=== PATIENT | female | born 1975 | race Caucasian/White ===

== ENCOUNTER 2018-07-30 05:17 | Day surgery (SDC) | payer BC ==
[2018-07-25 10:04] VITALS: BMI 25.0
--- NOTE | 2018-07-30 09:21 | HP ---
Past Medical History - Primary Care Physician PCP:: Linwood Bacon - Admission Chief Complaint: 43yo P1 admitted for laparoscopic BTL and D&C. History of Present Illness: Menorrhagia and sterilization. Failed Mirena IUD insertion. 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: Alzheimer's, CVA, Dementia, Migraine, Multiple Sclerosis, Peripheral Neuropathy, Parkinson's, Seizure, Syncope, TIA, Vertigo, Other Cardiovascular: No: AFIB, Aneurysm, Aortic Insufficiency, Aortic Stenosis, CAD, CHF, Deep Vein Thrombosis, HTN, Hyperlipdemia, [place], Mitral Insufficiency, Mitral Stenosis, Murmur, Pulmonary Hypertension, Other Pulmonary: Yes: Asthma Gastrointestinal: No: Ascites, Cancer, Constipation, Crohn's Disease, Diverticulitis, Diverticulosis, Esophageal Varices, Gastritis, GERD, GI Bleed, Hemorrhoids, Hiatal Hernia, Inflamatory Bowel Disease, Irritable Bowel Disease, Pancreatitis, Peptic Ulcer Disease, Ulcerative Colitis, Other Hepatobiliary: No: Cirrhosis, Cholelithiasis, Cholecystitis, Choledocholithiasis , Hepatitis A, Hepatitis B, Hepatitis C, Other Renal/: No: Renal Failure, Renal Inusuff, BPH, Cancer, Hematuria, Hemodialysis , Neurogenic Bladder, Renal Calculi, UTI, Other Reproductive: No: Ectopic , Endometriosis, Fibroids, PID, Polycystic Ovary Syndrome, Postmenopausal, Other ...Para: 2 (C/S x 2) Heme/Onc: Yes: Anemia Infectious Disease: No: AIDS, C-Diff, Herpes Zoster, HIV, MRSA, STD's, Tuberculosis, VREF, Other Psych: No: Addictions, Anxiety, Bipolar, Depression, Panic, Psychosis, Schizophrenia, Other Musculoskeletal: No: Bursitis, Chronic low back pain, Hemiparesis, Hemiplegia, Osteoarthritis, Paraplegia, Other Rheumatology: No: Fibromyalgia, Gout, Lupus, Rheumatoid Arthritis, Sarcoidosis, Vasculitis, Other Endocrine: No: Nowata's Disease, Baldev's Disease, Diabetes Insipidus, Diabetes Mellitus, Hyperparathyroidism, Hyperthyroidism, Hypothyroidism, Osteopenia, SIADH, Other Dermatology: No: Basal Cell, Cellulitis, Eczema, Melanoma, Psoriasis, Squamous Cell, Other - Past Surgical History Past Surgical History: Yes: Bariatric Surgery (Gastric sleeve), Hx Myomectomy: No Hx Transabdominal Cerclage: No - Smoking History Smoking history: Former smoker Have you smoked in the past 12 months: No - Alcohol/Substance Use Hx Alcohol Use: Yes (social) History of Substance Use: reports: None - Social History Usual Living Arrangement: Yes: With Spouse, With Child ADL: Independent History of Recent Travel: No Home Medications - Allergies Allergies/Adverse Reactions: Allergies Allergy/AdvReac Type Severity Reaction Status Date / Time No Known Allergies Allergy Verified 07/30/18 08:08 - Home Medications Home Medications: Ambulatory Orders Biotin 10,000 mcg PO DAILY 07/25/18 Cholecalciferol (Vitamin D3) [Vitamin D3 -] 400 unit PO DAILY 07/25/18 Docusate Sodium [Colace] 100 mg PO DAILY 07/25/18 Iron,Carb/Vit C/Vit B12/Folic [Iron 100 Plus Tablet] 1 each PO DAILY 07/25/18 Vitamin A 8,000 unit PO DAILY 07/25/18 Family Disease History - Family Disease History Family Disease History: Diabetes: Grandparent (lung ca), CA: Grandparent, Other : Mother (HTN) Review of Systems - Review of Systems Constitutional: reports: No Symptoms Eyes: reports: No Symptoms HENT: reports: No Symptoms Neck: reports: No Symptoms Cardiovascular: reports: No Symptoms Respiratory: reports: No Symptoms Gastrointestinal: reports: No Symptoms Genitourinary: reports: No Symptoms Breasts: reports: No Symptoms Reported Musculoskeletal: reports: No Symptoms Integumentary: reports: No Symptoms Neurological: reports: No Symptoms Endocrine: reports: No Symptoms Hematology/Lymphatic: reports: No Symptoms Psychiatric: reports: No Symptoms Pain Intensity: 0 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 Vital Signs: Vital Signs Temperature 98.7 F 07/30/18 08:17 Pulse Rate 72 07/30/18 08:17 Respiratory Rate 16 07/30/18 08:17 Blood Pressure 117/73 07/30/18 08:17 O2 Sat by Pulse Oximetry (%) 100 07/30/18 08:17 Constitutional: Yes: Well Nourished, No Distress, Calm Eyes: Yes: WNL, Conjunctiva Clear HENT: Yes: WNL, Atraumatic, Normocephalic Neck: Yes: WNL, Supple, Trachea Midline Cardiovascular: Yes: WNL, Regular Rate and Rhythm Respiratory: Yes: WNL, Regular, CTA Bilaterally Gastrointestinal: Yes: WNL, Normal Bowel Sounds, Soft ...Rectal Exam: Yes: Deferred Renal/: Yes: WNL Pelvis: Yes: WNL External Genitalia: Yes: Normal Vaginal Exam: Yes: Normal Cervix: Yes: Normal Uterus: Yes: Normal Adnexa: Normal: Left, Right ....Post : Yes: Uterus firm, Uterus non-tender Musculoskeletal: Yes: WNL Extremities: Yes: WNL Edema: No Integumentary: Yes: WNL Neurological: Yes: WNL, Alert, Oriented ...Motor Strength: WNL Psychiatric: Yes: WNL, Alert, Oriented Assessment/Plan 43yo P2 admitted for surgical sterilization with laparoscopic BTL and D&C. We had discussed the risks, benefits, alternatives of surgery at length including but not limited to infection, bleeding, scarring, perforation, amenorrhea, infertility, hysterectomy, injury to surrounding/underlying organs or structure , need for additional surgery to repair/treat any complications, etc. The patient verbalized understanding and requested to proceed with surgery. I emphasized that all surgeries have risks and no guarantees can be provided.
[2018-07-30] MEDS ORDERED: PROMETHAZINE HCL 25 MG/1 ML VIAL IVPUSH PRN (09:22)
[2018-07-30] MEDS ORDERED: ONDANSETRON 4 MG/2 ML VIAL IVPUSH PRN (09:22)
[2018-07-30] MEDS ORDERED: oxyCODONE HCL 5 MG TABLET PO PRN (09:22)
[2018-07-30] MEDS ORDERED: LACTATED RINGERS SOLUTION 1,000 ML IV SCH (09:30)
[2018-07-30] MEDS ORDERED: MIDAZOLAM HCL 2 MG/2 ML SINGLE DOSE VIAL ONE ×2 (09:50)
[2018-07-30] MEDS ORDERED: PROPOFOL 20 ML ONE (09:54)
[2018-07-30] MEDS ORDERED: ROCURONIUM BROMIDE 50 MG/5 ML VIAL ONE (09:54)
[2018-07-30] MEDS ORDERED: BUPIVACAINE HCL/PF 0.5% (5MG/ML) 10 ML VIAL ONE (09:55)
[2018-07-30] MEDS ORDERED: BUPIVACAINE HCL/PF 0.5% (5MG/ML) 10 ML VIAL IJ ONE (10:44)
[2018-07-30] MEDS ORDERED: NEOSTIGMINE METHYLSULFATE 0.5 MG/ML - 10 ML MDV ONE (10:45)
[2018-07-30 12:11] VITALS: TEMP 98
[2018-07-30 15:08] VITALS: BP 125/67; PULSE 69
--- NOTE | 2018-07-30 18:23 | DS ---
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 Vital Signs: Vital Signs Temperature 98.0 F 07/30/18 12:00 Pulse Rate 69 07/30/18 15:08 Respiratory Rate 20 07/30/18 15:08 Blood Pressure 125/67 07/30/18 15:08 O2 Sat by Pulse Oximetry (%) 99 07/30/18 15:00 Constitutional: Yes: Well Nourished, No Distress, Calm Eyes: Yes: WNL, Conjunctiva Clear HENT: Yes: WNL, Atraumatic, Normocephalic Neck: Yes: WNL, Supple, Trachea Midline Cardiovascular: Yes: WNL, Regular Rate and Rhythm Respiratory: Yes: WNL, Regular, CTA Bilaterally Gastrointestinal: Yes: WNL, Normal Bowel Sounds, Soft ...Rectal Exam: Yes: Deferred Renal/: Yes: WNL Musculoskeletal: Yes: WNL Extremities: Yes: WNL Edema: No Integumentary: Yes: WNL Wound/Incision: Yes: Clean/Dry, Well Approximated Neurological: Yes: WNL, Alert, Oriented ...Motor Strength: WNL Psychiatric: Yes: WNL, Alert, Oriented Discharge Summary Reason For Visit: STERILIZATION - Instructions Referrals: Linwood Bacon MD [Staff Physician] - Disposition: HOME - Home Medications Comprehensive Discharge Medication List: Ambulatory Orders Biotin 10,000 mcg PO DAILY 07/25/18 Cholecalciferol (Vitamin D3) [Vitamin D3 -] 400 unit PO DAILY 07/25/18 Docusate Sodium [Colace] 100 mg PO DAILY 07/25/18 Iron,Carb/Vit C/Vit B12/Folic [Iron 100 Plus Tablet] 1 each PO DAILY 07/25/18 Vitamin A 8,000 unit PO DAILY 07/25/18 Oxycodone HCl/Acetaminophen [Percocet 5-325 mg Tablet -] 1 - 2 tab PO Q6H PRN # 20 tab MDD 6 07/30/18 metroNIDAZOLE [Flagyl -] 500 mg PO BID #14 tablet 07/30/18
--- NOTE | 2018-07-30 18:39 | OP ---
Operative Note - Note: Operative Date: 07/30/18 Pre-Operative Diagnosis: menorrhagia, sterilization Operation: Laparoscopic BTL, D&C Findings: Mildly enlarged retroverted uterus. Normal Fallopian tubes and ovaries b/l, adhesions of omentum to anterior abdominal wall. Post-Operative Diagnosis: Same as Pre-op Surgeon: Linwood Bacon Plunger Shovel Operator: Remigio Berry Anesthesiologist/GLOBAL CLIMATE CHANGE RESEARCHER: La Baxter MD Anesthesia: General Specimens Removed: Endometrial curettings Estimated Blood Loss (mls): 5 Drains & Tubes with Location: Perez cath Drains, Volume Out (mls): 30 Blood Volume Replaced (mls): 0 Fluid Volume Replaced (mls): 1,000 Operative Report Dictated: Yes
--- NOTE | 2018-07-31 08:53 | OP ---
ADDENDUM DATE OF OPERATION: 07/30/2018 JUSTIFICATION OF STRATIGRAPHER: A surgical garment assembly supervisor was necessary due to patient's comorbidities such as obesity as well as multiple previous abdominal surgeries including 2 previous sections and a gastric sleeve. Possible complications were anticipated due to adhesive disease and a surgical garment assembly supervisor was required to assure a safe and expeditious surgery. The surgical garment assembly supervisor was critical in providing adequate visualization, retraction, hemostasis, dissection and allowing for the surgery to be completed in a safe and expeditious manner. The surgical garment assembly supervisor was involved in all parts of the operation. Ari [id number]
--- NOTE | 2018-07-31 09:55 | OP ---
DATE OF OPERATION: 07/30/2018 PREOPERATIVE DIAGNOSIS: Menorrhagia and surgical sterilization. POSTOPERATIVE DIAGNOSIS: Menorrhagia and surgical sterilization. PROCEDURE: Laparoscopic bilateral tubal ligation via fulguration, dilatation and curettage. SURGEON: Linwood Bacon MD CYLINDER MACHINE OPERATOR PULP DRIER: Remigio Berry MD ANESTHESIOLOGIST: La Baxter MD ANESTHESIA: General. COMPLICATIONS: None. ESTIMATED BLOOD LOSS: 5 mL. INTRAVENOUS FLUIDS: 1000 mL. URINE OUTPUT: Clear urine, 30 mL, at the end of the procedure. PATHOLOGY: Endometrial curettings. FINDINGS: Examination under anesthesia revealed a mildly enlarged retroverted uterus with no pelvic or adnexal masses. Laparoscopy revealed a retroverted uterus with normal fallopian tubes and ovaries. There were adhesions of the omentum to the anterior abdominal wall. The visualized segments of bowel and liver were within normal limits. DESCRIPTION OF PROCEDURE: The patient was met preoperatively. Risks, benefits, and alternatives of surgery were discussed in details. All questions were answered. The patient was brought to the OR with IV running. She was placed on the surgical table in the supine position. The general endotracheal anesthesia was achieved without difficulty. The patient was then placed in a dorsal lithotomy position using adjustable Ar stirrups. She was examined under anesthesia with the findings as described above. The patient was prepped and draped in the usual sterile fashion. A Perez catheter was inserted into bladder and left to drain to gravity. Cervix was dilated to accommodate a size 23 Melchor dilator. A sharp curettage was performed and tissue was sent to Pathology for evaluation. Following the D and C, a uterine manipulator was inserted inside the uterus. The surgeons then regloved and proceeded with the laparoscopy. A 5-mm infraumbilical incision was made with the knife. A Veress needle was inserted through the umbilical incision into the peritoneal cavity. Intraperitoneal placement was confirmed by drop in saline meniscus. Pneumoperitoneum was then induced without complications with the intraabdominal pressure limited to 15 mmHg. The Veress needle was then removed. An Optiview trocar was used to gain entry through the umbilical incision and into the peritoneal cavity under direct visualization. Atraumatic placement was confirmed. Survey of the abdomen and pelvis revealed the findings as described above. A second incision was made approximately 3 cm above the pubic symphysis in the midline. A second 5-mm trocar was inserted through the incision under direct visualization. A bipolar Kleppinger device was then used to grasp the right fallopian tube. The fallopian tube was followed to the fimbriated end. The mid-portion of the right fallopian tube was then cauterized using bipolar Kleppinger cautery device for the length of approximately 3 cm. Good cauterization was achieved. The left fallopian tube was then grasped and followed to the fimbriated end. The mid-portion of the left fallopian tube was also cauterized using the bipolar Kleppinger cautery device for the length of about 3 cm. Good cauterization results were achieved. Once this was completed, all of the instruments were removed from the patient. The pneumoperitoneum was reduced. Sponge, lap, and needle counts were correct. The abdominal incisions were closed with 3-0 Vicryl suture for the skin. A uterine manipulator was removed from the patient. A Perez catheter was also removed from the patient. The patient was returned to supine position. She was then transferred to recovery room awake and in stable condition. Ari [id number]
--- NOTE | 2018-07-31 17:11 | PATH ---
Surgical Pathology Report Patient Name: AMIRA PEREZ [facility]. Rec. #: [id number] /Age/Gender: 1975 (Age: 43) / F Account: [id number] Location: [facility] Taken: 07/30/2018 Received: 07/30/2018 Reported: 07/31/2018 Physicians: Linwood Bacon M.D. Specimen(s) Received ENDOMETRIAL CURETTINGS Clinical History Voluntary sterilization Final Diagnosis ENDOMETRIAL CURETTINGS: FRAGMENTS OF ENDOMETRIAL POLYP. SEPARATE FRAGMENTS OF PROLIFERATIVE ENDOMETRIUM. SEPARATE ENDOCERVICAL TISSUE WITH SQUAMOUS METAPLASIA. Electronically Signed Marcellus Manriquez M.D. Gross Description Received in formalin labeled "endometrial curetting," is a 3.7 x 2.4 x 0.3 cm aggregate of rangel-red soft tissue fragments. The formalin is filtered and the specimen is entirely submitted in 2 cassettes. DL/07/30/2018 saudi07/30/2018
== END 2018-07-30 15:10 | disposition home or self-care (01) ==
LOC: JASU-SURG 05:17
PROVIDERS: ATTEND Obstetrics & Gynecology
PROC: 0UB74ZZ Excision of Bilateral Fallopian Tubes, Percutaneous Endoscopic Approach (ICD-10-PCS; principal; 2018-07-30 09:00)
PROC: 0UDB7ZX Extraction of Endometrium, Via Natural or Artificial Opening, Diagnostic (ICD-10-PCS; 2018-07-30 09:00)
DX: Z30.2 Encounter for sterilization (principal); N92.0 Excessive and frequent menstruation with regular cycle; K66.0 Peritoneal adhesions (postprocedural) (postinfection)
CPT/HCPCS: 84703; 88305-TC; 94760

== ENCOUNTER 2019-01-07 08:36 | Day surgery (SDC) | payer BC ==
[2019-01-04 09:19] VITALS: BMI 25.7
[2019-01-07] MEDS ORDERED: MIDAZOLAM HCL 2 MG/2 ML SINGLE DOSE VIAL ONE ×2 (10:22→10:32)
[2019-01-07] MEDS ORDERED: PROPOFOL 20 ML ONE (10:22)
--- NOTE | 2019-01-07 10:34 | HP ---
History & Physical Update - History History: No Change (Menorrhagia, anemia) - Physical Physical: No Change - Assessment Assessment: No Change - Plan Plan: No Change (Hysteroscopy, D&C, endometrial ablation)
[2019-01-07] MEDS ORDERED: ceFAZolin SODIUM 1 GM VIAL IVPB ONE (11:00)
[2019-01-07] MEDS ORDERED: ACETAMINOPHEN 325 MG TABLET (FP) PO PRN (11:17)
[2019-01-07] MEDS ORDERED: ONDANSETRON 4 MG/2 ML VIAL IVPUSH PRN (11:17)
[2019-01-07] MEDS ORDERED: oxyCODONE HCL 5 MG TABLET PO PRN (11:17)
[2019-01-07] MEDS ORDERED: LACTATED RINGERS SOLUTION 1,000 ML IV SCH (11:30)
--- NOTE | 2019-01-07 11:45 | OP ---
Operative Note - Note: Operative Date: 01/07/19 Pre-Operative Diagnosis: Menorrhagia, anemia Operation: Hysteroscopy, endometrial ablation Findings: Normal uterine cavity Post-Operative Diagnosis: Same as Pre-op Surgeon: Linwood Bacon Anesthesiologist/STAVE MACHINE TENDER: Mina Lopez (Dr. Hawk) Anesthesia: General Estimated Blood Loss (mls): 30 Blood Volume Replaced (mls): 0 Fluid Volume Replaced (mls): 700 Operative Report Dictated: Yes
[2019-01-07] MEDS ORDERED: ONDANSETRON 4 MG/2 ML VIAL IVPUSH ONE (13:00)
[2019-01-07] MEDS ORDERED: ONDANSETRON 4 MG/2 ML VIAL ONE (13:02)
[2019-01-07] MEDS ORDERED: GLYCOPYRROLATE 0.2 MG/1 ML VIAL ONE (13:03)
[2019-01-07 15:12] VITALS: BP 130/65; PULSE 69; TEMP 98.6
--- NOTE | 2019-01-08 06:06 | OP ---
DATE OF OPERATION: 01/07/2019 PREOPERATIVE DIAGNOSIS: Menorrhagia, anemia. POSTOPERATIVE DIAGNOSIS: Menorrhagia, anemia. PROCEDURE: Hysteroscopy, endometrial ablation using [id number]. SURGEON: Linwood Bacon MD ANESTHESIOLOGIST: Jeannie Hawk DO SEWING MACHINE REPAIRER: Mina Lopez CRNA ANESTHESIA: General. COMPLICATIONS: None. ESTIMATED BLOOD LOSS: 30 mL. INTRAVENOUS FLUIDS: 700 mL. PATHOLOGY: None. FINDINGS: Examination under anesthesia revealed a normal retroverted uterus with no pelvic or adnexal masses. The hysteroscopy revealed a normal uterine cavity with no lesions or masses. Endometrial ablation was conducted under direct continuous visualization in real time and without complications. DESCRIPTION OF PROCEDURE: The patient was met preoperatively. Risks, benefits, and alternatives of surgery were discussed at length. The consent form was reviewed, discussed, and signed. The patient verbalized understanding and requested to proceed with the surgery. The patient was brought to the OR with IV running. She was placed on the surgical table in the supine position. The general anesthesia was achieved without difficulty. The patient was then placed in a dorsal lithotomy position using adjustable Ar stirrups. She was examined under anesthesia with the findings as described above. The patient was then prepped and draped in the usual sterile fashion. The time-out was conducted as per standard protocol. A weighted speculum was then introduced inside the patients vagina with good visualization of the cervix. The cervix was grasped with a single-tooth tenaculum. The cervical os was gently dilated to accommodate a size 25 Melchor dilator. A hysteroscope was introduced into the uterine cavity without complications. Survey of the endometrial cavity revealed no lesions or masses. The endometrial cavity appeared to be within normal limits. A hydrothermal endometrial ablation was then performed under direct visualization. There was no fluid leakage. The fluid loss and deficit was 0. The entire procedure was conducted under real time visualization and completed without complications. The instruments were then removed from the patient. Sponge, lap, and needle counts were correct. Good hemostasis was confirmed. The patient was then returned to supine position. She was transferred to recovery room in stable condition and awake. Ari [id number]
== END 2019-01-07 15:30 | disposition home or self-care (01) ==
LOC: JASU-SURG 08:36
PROVIDERS: ATTEND Obstetrics & Gynecology
PROC: 0U5B8ZZ Destruction of Endometrium, Via Natural or Artificial Opening Endoscopic (ICD-10-PCS; principal; 2019-01-07 10:00)
DX: N92.0 Excessive and frequent menstruation with regular cycle (principal); D64.9 Anemia, unspecified
CPT/HCPCS: 36415; 84703; 86850; 86900; 86901; 94760

== ENCOUNTER 2021-07-26 04:40 | Day surgery (SDC) | payer BC ==
[2021-07-21 12:00] VITALS: BMI 28.3
[2021-07-26] MEDS ORDERED: BUPIVACAINE HCL/PF 0.5% (5MG/ML) 10 ML VIAL ONE ×2 (07:34→09:01)
[2021-07-26] MEDS ORDERED: METHYLENE BLUE 50 MG/10 ML AMPUL ONE (07:34)
[2021-07-26] MEDS ORDERED: ONDANSETRON 4 MG/2 ML VIAL IVPUSH PRN (08:42)
[2021-07-26] MEDS ORDERED: PROMETHAZINE HCL 25 MG/1 ML VIAL IVPUSH PRN (08:42)
[2021-07-26] MEDS ORDERED: LACTATED RINGERS SOLUTION 1,000 ML IV SCH (08:45)
[2021-07-26] MEDS ORDERED: CEFAZOLIN 2 GM in DEXTROSE 5%-WATER - 100 ML IVPB ONE (08:46)
[2021-07-26] MEDS ORDERED: BUPIVACAINE LIPOSOME/PF (EXPAREL) 266 MG/20 ML VIAL ONE (09:01)
[2021-07-26] MEDS ORDERED: MIDAZOLAM HCL 2 MG/2 ML SINGLE DOSE VIAL ONE ×2 (09:02)
[2021-07-26] MEDS ORDERED: PROPOFOL 20 ML ONE ×2 (09:02)
[2021-07-26] MEDS ORDERED: ROCURONIUM BROMIDE 50 MG/5 ML SYRINGE ONE (09:02)
[2021-07-26] MEDS ORDERED: SODIUM CHLORIDE 0.9% P/F 10 ML VIAL IJ ONE (09:04)
[2021-07-26] MEDS ORDERED: LIDOCAINE HCL/PF 2% SDV 5ML VIAL ONE (09:04)
[2021-07-26] MEDS ORDERED: ceFAZolin SODIUM 1 GM VIAL ONE (09:05)
[2021-07-26] MEDS ORDERED: BUPIVACAINE HCL/PF 0.5% (5MG/ML) 10 ML VIAL IJ ONE (09:06)
[2021-07-26] MEDS ORDERED: METHYLENE BLUE 1% 10 MG/1 ML VIAL IVPUSH ONE ×2 (09:06→11:29)
[2021-07-26] MEDS ORDERED: ceFAZolin 2 GRAM PREMIX BAG IVPB ONE (09:44)
[2021-07-26] MEDS ORDERED: DEXAMETHASONE SOD PHOSPHATE 4 MG/1 ML VIAL ONE (09:50)
[2021-07-26] MEDS ORDERED: ACETAMINOPHEN 325 MG TABLET (FP) PO PRN (12:34)
[2021-07-26] MEDS ORDERED: ACETAMINOPHEN 1000 MG/100 ML BAG IVPB ONE (15:37)
[2021-07-26] MEDS ORDERED: CEFAZOLIN 2 GM in DEXTROSE 5%-WATER - 100 ML IVPB SCH (18:00)
[2021-07-26] MEDS: DOCUSATE SODIUM 100 MG CAPSULE (FP) PO PRN (18:01)
[2021-07-26] MEDS: IBUPROFEN 600 MG TABLET (FP) PO PRN ×2 (18:01→23:15)
[2021-07-26] MEDS: CEFAZOLIN 2 GM in SODIUM CHLORIDE 100 ML IVPB SCH (20:03)
[2021-07-26] MEDS ORDERED: diphenhydrAMINE HCL 25 MG CAPSULE (FP) PO PRN (22:44)
[2021-07-27] MEDS: oxyCODONE HCL 5 MG TABLET PO PRN ×2 (03:12→08:14)
[2021-07-27] MEDS: CEFAZOLIN 2 GM in SODIUM CHLORIDE 100 ML IVPB SCH (03:13)
[2021-07-27] MEDS: DOCUSATE SODIUM 100 MG CAPSULE (FP) PO PRN (09:43)
[2021-07-27 10:42] VITALS: BP 111/59; PULSE 73; TEMP 98.1
== END 2021-07-27 13:20 | disposition home or self-care (01) ==
LOC: JASUSAT 04:40 → EDSTATUS 08:00 → J3W 14:27 → JASUSAT 07-27 13:20
PROVIDERS: ATTEND Obstetrics & Gynecology
PROC: 0UT94ZZ Resection of Uterus, Percutaneous Endoscopic Approach (ICD-10-PCS; principal; 2021-07-26 08:30)
DX: N92.0 Excessive and frequent menstruation with regular cycle (principal); N80.0 Endometriosis of uterus; D25.9 Leiomyoma of uterus, unspecified
CPT/HCPCS: 81025; 86850; 86900; 86901; 86922; 88302-TC; 88307-TC; 94760; J0131; Q9968